=== PATIENT | female | born 1995 | race Caucasian/White ===

== ENCOUNTER 2018-04-21 14:29 | Emergency (ER) | payer SELFPAY ==
[~2018-04-21] VITALS: Ht 160 cm; Wt 51.3 kg
[~2018-04-21 14:29] MED LIST: FERR325E14 PO
[2018-04-21 14:34] VITALS: BP 113/70
--- NOTE | 2018-04-21 14:39 | NUR ---
PATIENT AMBULATED TO BED 7 AT THIS TIME.
--- NOTE | 2018-04-21 14:41 | NUR ---
PATIENT PRESENTS TO ED WITH THE CHIEF C/O BACK PAIN SINCE THURSDAY. PT STATES HAS FREQUENCY OF URINE AND BURNING URINATION. HAS BLOOD IN URINE. HAD FEVER THIS MORNING ACCORDING TO THE PT. TOOK ADVIL. C/O N/D. DENIES VOMITING. SKIN IS PINK/WARM/DRY; AAOX4 WITH EVEN AND STEADY GAIT. DENIES CP, SOB, OR COUGH AT THIS TIME; PATIENT STATES PAIN OF 7/10 AT THIS TIME; VSS; PATIENT POSITIONED FOR COMFORT; HOB ELEVATED; BEDRAILS UP X2; BED DOWN. ER MD MADE AWARE OF PT STATUS.
[2018-04-21] MEDS ORDERED: KETOROLAC 60 MG/2 ML VIAL IM ONE (15:15)
--- NOTE | 2018-04-21 15:50 | NUR ---
Patient discharged with v/s stable. Written and verbal after care instructions given and explained. Patient alert, oriented and verbalized understanding of instructions. Ambulatory with steady gait. All questions addressed prior to discharge. ID band removed. Patient advised to follow up with PMD. Rx of CIPRO, PYRIDIUM AND MOTRIN given. Patient educated on indication of medication including possible reaction and side effects. Opportunity to ask questions provided and answered.
[2018-04-21 15:59] VITALS: BP 100/57
== END 2018-04-21 15:50 | disposition home or self-care (01) ==
LOC: MED 14:29
DX: N39.0 Urinary tract infection, site not specified (principal); Z79.899 Other long term (current) drug therapy
CPT/HCPCS: 96372; 99283; J1885; 81002; 81025

== ENCOUNTER 2023-05-31 18:00 | Emergency (ER) | payer OTHER ==
[~2023-05-31] VITALS: Ht 160 cm; Wt 54.4 kg
[2023-05-31 18:36] VITALS: BP 105/76; PULSE 94; RESP 16; TEMP 98.1; O2SAT 98
[2023-05-31 19:24] LABS: BASOPHILS % (AUTO) 0.4 % (0.0-2.0); EOSINOPHILS % (AUTO) 0.2 % (0.0-4.0); HEMATOCRIT 38.9 % (36-48); HEMOGLOBIN 13.5 g/dL (12.0-16.0); LYMPHOCYTES # (AUTO) 3.1 K/uL (2.5-16.5); LYMPHOCYTES % (AUTO) 24.1 % (20.5-51.1); MEAN CORPUSCULAR HEMOGLOBIN 34 pg (27-31); MEAN CORPUSCULAR HGB CONC 35 g/dL (33-37); MEAN CORPUSCULAR VOLUME 98.8 fL (80-94); MONOCYTES # (AUTO) 0.8 K/uL (0.8-1.0); MONOCYTES % (AUTO) 5.9 % (1.7-9.3); NEUTROPHILS % (AUTO) 69.4 % (42.2-75.2); PLATELET COUNT (AUTO) 288 K/uL (140-450); RED BLOOD CELL COUNT(AUTO) 3.94 MIL/uL (4.20-5.40); RED CELL DISTRIBUTION WIDTH 12.4 % (11.6-13.7)
[2023-05-31 19:40] LABS: CALCIUM 8.9 mg/dL (8.5-10.1); CARBON DIOXIDE 25.8 mmol/L (21-32); CREATININE 0.6 mg/dL (0.6-1.3); POTASSIUM 3.8 mmol/L (3.5-5.1)
[2023-05-31 19:48] LABS: ALBUMIN 4.4 g/dL (3.4-5.0); BILIRUBIN,DIRECT 0.2 mg/dL (0.0-0.3); TOTAL BILIRUBIN 1.3 mg/dL (0.0-1.0); TOTAL PROTEIN, SERUM 9.5 g/dL (6.4-8.2)
[2023-05-31] MEDS ORDERED: ONDA8TAB87 PO (21:33)
[2023-05-31] MEDS ORDERED: IBUP-2213 PO (21:33)
[2023-05-31] MEDS: KETOROLAC 60 MG/2 ML VIAL IM ONE (21:56)
[2023-05-31] MEDS: ONDANSETRON 4 MG ODT PO ONE (21:56)
== END 2023-05-31 21:56 | disposition home or self-care (01) ==
LOC: MED 18:00
DX: R11.2 Nausea with vomiting, unspecified (principal); R10.13 Epigastric pain; Z79.899 Other long term (current) drug therapy
CPT/HCPCS: 36415; 80048; 80076; 81002; 81025; 83690; 85025; 96372; 99283; J1885; Q0162